=== PATIENT | male | born 1950 | race Caucasian/White ===

== ENCOUNTER 2017-10-21 09:29 | Outpatient (CLI) | payer MEDICARE ==
--- NOTE | 2017-10-21 15:08 | NM ---
RADIONUCLIDE BONE SCAN: Date: 10/21/16 HISTORY: Abnormal MRI. Bone lesion on C4 vertebra. FINDINGS: Prominent uptake about the knees, left ankle, shoulders, sternoclavicular joints, and lower lumbar sp ine have the appearance of degenerative changes. Heterogeneous uptake of the cervical spine is minima l. There is no abnormal uptake at the C4 vertebral body in region of concern on recent MRI. A focus of increased uptake at the inferior medial aspect of the left orbital rim is present. On rece nt MRI of the brain, no lesions were visible. This is favored to represent skin contamination. A subtle focus of increased uptake involves the anterolateral aspect of the right third rib. Less pro minent uptake involves the anterior aspect of the left upper ribs. Prior trauma is favored. IMPRESSION: 1. No abnormal uptake at the upper cervical spine in region of concern on recent MRI. That lesion li lisa represents an atypical hemangioma. 2. Osteoarthritis involving the joints as detailed above. 3. Suspected old rib injuries. Exam was read in conjunction with Dr. Elliott and Dr. Luna. CODE CR. POS: [facility]
== END 2017-10-21 09:30 | disposition home or self-care (01) ==
LOC: NM 09:29
PROVIDERS: ATTEND Psychiatry & Neurology Neurology
DX: M89.9 Disorder of bone, unspecified (principal); M19.072 Primary osteoarthritis, left ankle and foot; M19.011 Primary osteoarthritis, right shoulder; M19.012 Primary osteoarthritis, left shoulder; M47.816 Spondylosis without myelopathy or radiculopathy, lumbar region
CPT/HCPCS: 78306; A9503

== ENCOUNTER 2019-07-29 11:51 | Outpatient (CLI) | payer MEDICARE ==
--- NOTE | 2019-07-29 13:07 | RAD ---
EXAM: Bone survey HISTORY: Multiple myeloma COMPARISON: None TECHNIQUE: Images of the skull, chest, spine, pelvis, bilateral upper extremities, and bilateral lowe r extremities were performed. FINDINGS: No fracture or dislocation are seen. No suspicious osseous lesions are identified. A compression fr acture of T12 is incidentally seen which demonstrates approximately 25% height loss. Degenerative changes are seen in both knees, right greater than left. IMPRESSION: 1. No suspicious osseous lesions identified 2. T12 compression fracture
--- NOTE | 2019-07-29 13:15 | RAD ---
TWO VIEW CHEST: HISTORY: Shortness of breath. COMPARISON: 08/08/2016. FINDINGS: The heart size is upper normal and stable. Vascular markings normal. Mild increased interstitial ma rkings. There are 2 nodular densities overlying the right upper lung which were noted on the prior e xam and appear stable. No infiltrate or effusion. There is wedging of a lower thoracic vertebra, pr obably T12. This is age-indeterminate. It is not evaluated on the previous AP chest. The other thoracic vertebrae maintain height. Degenerative changes at both shoulders. Evidence of old left-sided rib fractures, probably stable. IMPRESSION: 1. Increased interstitial markings, slightly more prominent than on the prior study. 2. Two nodular opacities in the right upper lung appear stable. 3. Mild compression of the T12 vertebra, age indeterminate. POS: [facility]
== END 2019-07-29 11:52 | disposition home or self-care (01) ==
LOC: BICRAD 11:51
PROVIDERS: ATTEND Internal Medicine Medical Oncology
DX: C90.00 Multiple myeloma not having achieved remission (principal); R06.02 Shortness of breath; D47.2 Monoclonal gammopathy; R91.8 Other nonspecific abnormal finding of lung field; S22.089A Unspecified fracture of T11-T12 vertebra, initial encounter for closed fracture; Z79.899 Other long term (current) drug therapy
CPT/HCPCS: 71046; 77075; 80053; 81001; 82248; 82607; 82728; 82746; 83540; 83550; 83615; 83883; 84100; 84153; 84165; 84550; 85046

== ENCOUNTER 2019-08-10 09:25 | Outpatient (CLI) | payer MEDICARE ==
--- NOTE | 2019-08-10 13:38 | NM ---
NM Bone Scan STANDARD: 08/10/2019 12:00 AM CLINICAL INDICATION: Multiple myeloma. COMPARISON: Bone scan 10/21/2017 RADIOPHARMACEUTICAL: 32 mCi technetium 99m MDP IV FINDINGS: Bone lesions: There has been development of increased scintigraphic activity localizing to the inferi or aspect of the left scapula. Prior uptake involving upper right rib has resolved. Other findings: Degenerative activity is present at the axial and appendicular skeleton, most pronoun william at the right knee. IMPRESSION: 1. Newly developed focus of increased activity at the inferior aspect of the left scapula. Recommend correlation with radiographs for further assessment. 2. Interval resolution of prior increased activity involving upper right rib.. Transcribed Date/Time: 08/10/2019 1:54 PM
== END 2019-08-10 09:26 | disposition home or self-care (01) ==
LOC: NM 09:25
PROVIDERS: ATTEND Internal Medicine Medical Oncology
DX: C79.51 Secondary malignant neoplasm of bone (principal); C80.1 Malignant (primary) neoplasm, unspecified; D47.2 Monoclonal gammopathy
CPT/HCPCS: 78306; A9503

== ENCOUNTER 2019-08-19 10:13 | Outpatient (CLI) | payer MEDICARE ==
--- NOTE | 2019-08-19 13:07 | RAD ---
LEFT SCAPULA 2 VIEWS: HISTORY: Monoclonal gammopathy. Abnormal uptake seen in the inferior aspect of the left scapula on a bone sca n exam. COMPARISON: The bone scan study of 08/10/2019. FINDINGS: Bones appear demineralized. There are arthritic changes of the AC and glenohumeral joint spaces. I do not see any definitive scapular abnormality. IMPRESSION: No definite signs of any lytic or blastic lesion of the scapula. POS: [facility]
== END 2019-08-19 10:14 | disposition home or self-care (01) ==
LOC: BICRAD 10:13 → RAD 10:14
PROVIDERS: ATTEND Internal Medicine Medical Oncology
DX: L98.9 Disorder of the skin and subcutaneous tissue, unspecified (principal); D47.2 Monoclonal gammopathy

== ENCOUNTER 2019-08-27 08:48 | Outpatient (CLI) | payer MEDICARE ==
[2019-08-27] MEDS ORDERED: Iopamidol 370 76% 100 ML VIAL ONE (09:00)
--- NOTE | 2019-08-27 14:17 | CT ---
CHEST CT WITH CONTRAST ABDOMEN CT WITH CONTRAST PELVIC CT WITH CONTRAST: HISTORY: Monoclonal gammopathy. Bony metastases. Unknown primary. Correlation: Whole body bone scan 10/21/2017, 08/10/2019; bone survey 07/29/2019. COMPARISON: None. FINDINGS: Chest CT: Mediastinum: No mass, lymphadenopathy or hematoma. Aorta: Normal caliber. Minimal atherosclerosis. No periaortic fat stranding. Heart: Normal heart size. No significant pericardial fluid. There are coronary calcifications. Calcif ication of the aortic valve. Trachea and central bronchi: Patent. Pleural spaces: No pleural effusion Right lung: Dependent atelectatic changes. No suspicious masses or consolidation. No suspicious nodul es. Left lung:Dependent atelectatic changes. No suspicious masses or consolidation. No suspicious nodule. Pneumothorax: None. Abdomen CT: Gallbladder: Unremarkable. Portal vein: Patent. Liver: Diffuse hypoattenuation due to hepatic steatosis. No enhancing liver masses. Spleen: Appropriate enhancement. Pancreas: Appropriate enhancement. Adrenal glands: Appropriate enhancement. Lymphadenopathy: No gastrohepatic, retrocrural or periportal lymphadenopathy. Kidneys: Symmetric enhancement. No obstructive uropathy. Subcentimeter hypodensities in the left and right renal cortex may represent cortical cysts. There is atrophy of the lower pole of the left kidney. Mesentery: No mass, lymphadenopathy, free air or free fluid. Alimentary canal: Moderate hiatal hernia is identified. No gastric mucosal abnormality. Multiple norm al caliber small bowel loops. Ileocecal junction is unremarkable. Cecal apex is unremarkable. There is contrast opacifying a nondistended, nondilated colon. Pelvis CT: No pelvic mass, lymphadenopathy, free air or free fluid. Moderately enlarged prostate gland with mass effect upon the floor of the urinary bladder. Limited evaluation of the bladder mucosa due to incomplete distention. Approximately 0.9 cm bladder c alculus is noted. Osseous structures: There are old bilateral rib fractures. There is an old fracture of the inferior aspect of the left sc apula. Sclerotic focus involving the anterior right second rib, right third rib, posterior right fifth rib, left second rib. Sclerotic focus involving the left iliac wing measuring 2.1 x 1.8 cm. Sclerotic focus in the right aspect of S1 measuring 1.1 x 1.8 cm. Remote compression fracture at T12. IMPRESSION: 1. Multifocal sclerotic lesions suggesting multifocal osseous metastases. 2. No evidence of a primary neoplasm in the chest, abdomen or pelvis. Transcribed Date/Time: 08/27/2019 2:35 PM
== END 2019-08-27 08:49 | disposition home or self-care (01) ==
LOC: SCSCT 08:48
PROVIDERS: ATTEND Internal Medicine Medical Oncology
DX: C80.1 Malignant (primary) neoplasm, unspecified (principal); C79.51 Secondary malignant neoplasm of bone; M89.9 Disorder of bone, unspecified
CPT/HCPCS: 71260; 74177; 82565; Q9967

== ENCOUNTER 2019-09-23 13:28 | Outpatient (CLI) | payer MEDICARE ==
--- NOTE | 2019-09-23 15:45 | PET ---
PET CT: HISTORY: A 70-year-old with osteosclerotic multiple myeloma. Exam requested for initial staging. TECHNIQUE: PET scanning with CT attenuation correction was performed from the vertex through the proximal thighs following the intravenous administration of 12.6 mCi [id number] in the right antecubital fossa. COMPARISON: None. CORRELATION: CT chest, abdomen, and pelvis of 08/27/2019 and whole body bone scan of 08/10/2019. FINDINGS: There is a focal area of intense uptake in the posterior aspect of the inferior pole of the right lob e of the thyroid gland with an SUV of 8.4. No christian hypermetabolism is seen in the neck, chest, axillae, abdomen, or pelvis. No hypermetabolic pulmonary nodules, liver, adrenal, or skeletal lesions are seen. There is physiologic activity in the GI and tracts and brain. The CT scan used for attenuation correction demonstrates no evidence of pleural effusions or ascites. An 8 mm calculus in the dependent portion of the urinary bladder is again seen. IMPRESSION: 1. Hypermetabolic thyroid nodule. This should be evaluated with ultrasound and FNA. 2. No other abnormal foci of FDG localization are identified. POS: [facility]
== END 2019-09-23 13:29 | disposition home or self-care (01) ==
LOC: PET 13:28
PROVIDERS: ATTEND Internal Medicine Medical Oncology
DX: C90.00 Multiple myeloma not having achieved remission (principal); E04.1 Nontoxic single thyroid nodule
CPT/HCPCS: 78815; A9552